=== PATIENT | male | born 1950 | race Caucasian/White ===

== ENCOUNTER 2018-12-24 21:48 | Emergency (ER) | payer MEDICARE ==
[~2018-12-24] VITALS: Ht 177.8 cm; Wt 104.3 kg
--- NOTE | 2018-12-24 21:53 | ED.ADGEN ---
Past History Past Medical History: A-Fib, Arthritis, Arrhythmia, CHF, COPD, Diabetes, Heart Disease, Hypertension, Other Past Surgical History: Cholecystectomy Smoking: Cigarettes Adult General Chief Complaint Chief Complaint ".. I think I got some bad meat.. we bought some at the [employer] store... and after I ate it yesterday... I got up set stomach.. and started having diarrhea .. last night... but today... I ve been vomiting and diarrhea all day... " HPI HPI Patient is a 68 year old male who presents with above hx and complaints N, V, and Diarrhea. Pt. states he can't count the number of diarrhea episodes and had several episodes of vomiting today. Pt. states he normally follows at [facility] if he needs medical care. Pt. hx of diabetes, hypertension, COPD, arthritis, and A. fib.. Patient states he rarely follows up with his doctor at the [facility]. Patient has noncompliance with recommended medications. Pt. denies any travel or specific ill contacts. Pt. does smoke. Review of Systems Review of Systems Constitutional:Subjective fever and chills [] Eyes: Denies change in visual acuity, redness, or eye pain [] HENT: Denies nasal congestion or sore throat [] Respiratory: Denies cough or shortness of breath [] Cardiovascular: No additional information not addressed in HPI [] GI: Generalize abdominal pain, nausea, vomiting,and diarrhea [] : Denies dysuria or hematuria [] Musculoskeletal: Denies back pain or joint pain [] Integument: Denies rash or skin lesions [] Neurologic: Denies headache, focal weakness or sensory changes [] Endocrine: Denies polyuria or polydipsia [] All other systems were reviewed and found to be within normal limits, except as documented in this note. Family History Family History Non-contributory Current Medications Current Medications Current Medications Medications (Trade) Dose Ordered Sig/Chris Start Time Stop Time Status Last Admin Dose Admin Ceftriaxone Sodium 1 gm/ Sodium Chloride 50 ml @ 100 mls/hr 1X ONCE 12/24/18 23:30 12/24/18 23:59 DC 12/24/18 23:31 100 MLS/HR Ceftriaxone Sodium (Rocephin) 1 gm STK-MED ONCE 12/24/18 23:26 12/24/18 23:27 DC Enoxaparin Sodium (Lovenox 100mg Syringe) 100 mg 1X ONCE 12/24/18 23:45 12/24/18 23:46 DC 12/25/18 00:51 100 MG Famotidine (Pepcid Vial) 20 mg 1X ONCE 12/24/18 23:00 12/24/18 23:01 DC 12/24/18 22:42 20 MG Lactated Ringer's 1,000 ml @ 100 mls/hr Q10H 12/24/18 23:00 12/25/18 08:59 12/24/18 22:42 100 MLS/HR Metronidazole 100 ml @ 100 mls/hr 1X ONCE 12/24/18 23:30 12/25/18 00:29 DC 12/24/18 23:31 100 MLS/HR Morphine Sulfate (Morphine 10mg Syringe) 10 mg 1X ONCE 12/24/18 23:00 12/24/18 23:01 DC 12/24/18 22:44 10 MG Ondansetron HCl (Zofran) 8 mg 1X ONCE 12/24/18 23:00 12/24/18 23:01 DC 12/24/18 22:42 8 MG Sodium Chloride 500 ml @ As Directed STK-MED ONCE 12/25/18 00:40 12/25/18 00:41 DC Vancomycin HCl (Vanco Per Pharmacy) 1 each PRN DAILY PRN 12/25/18 00:15 Vancomycin HCl (Vancomycin) 1 gm STK-MED ONCE 12/25/18 00:41 12/25/18 00:42 DC Vancomycin HCl 1 gm/Sodium Chloride 250 ml @ 250 mls/hr 1X ONCE 12/25/18 00:15 12/25/18 01:14 UNV Vancomycin HCl 2 gm/Sodium Chloride 500 ml @ 250 mls/hr 1X ONCE 12/25/18 00:30 12/25/18 02:29 See Nursing for home meds.. Allergies Allergies Allergies Coded Allergies Type Severity Reaction Last Updated Verified No Known Drug Allergies 12/24/18 No Physical Exam Physical Exam Constitutional: in acute distress, non-toxic appearance. [] HENT: Normocephalic, atraumatic, bilateral external ears normal, oropharynx dry, no oral exudates, nose normal. [] Eyes: PERRLA, EOMI, conjunctiva normal, no discharge. [] Neck: Normal range of motion, no tenderness, supple, no stridor. [] Cardiovascular:Tachycardia Heart rate regular rhythm, no murmur, PMI to Lt. ] Lungs & Thorax: Bilateral breath sounds equal apexes with scattered wheezes and crackles on auscultation [] Abdomen: Bowel sounds hyperactive, soft, generalized tenderness, no masses, no pulsatile masses. [Old surgery scar. Active vomiting and diarrhea. ( Min. urine with placement of godwin) Skin: Warm, dry, no erythema, no rash. Poor turgor. Back: No tenderness, no CVA tenderness. [] Extremities: No tenderness, no cyanosis, no clubbing, ROM intact, no edema. Arthritic changes. Neurologic: Alert and oriented X 3, moves all ext. on request and has distal sensory function, no gross focal deficits noted. [] Psychologic: Affect anxious, judgement normal, mood normal. [] Current Patient Data Vital Signs Vital Signs Date Time Temp Pulse Resp B/P (MAP) Pulse Ox O2 Delivery O2 Flow Rate FiO2 12/24/18 22:44 18 91 Lab Results Laboratory Tests Test 12/24/18 22:13 12/24/18 23:15 12/25/18 00:11 White Blood Count 24.4 x10^3/uL (4.0-11.0) H Red Blood Count 6.32 x10^6/uL (4.30-5.70) H Hemoglobin 19.3 g/dL (13.0-17.5) H Hematocrit 56.7 % (39.0-53.0) H Mean Corpuscular Volume 90 fL (79-100) Mean Corpuscular Hemoglobin 31 pg (25-35) Mean Corpuscular Hemoglobin Concent 34 g/dL (31-37) Red Cell Distribution Width 14.3 % (11.5-14.5) Platelet Count 313 x10^3/uL (140-400) Neutrophils (%) (Auto) 91 % (31-73) H Lymphocytes (%) (Auto) 4 % (24-48) L Monocytes (%) (Auto) 4 % (0-9) Eosinophils (%) (Auto) 0 % (0-3) Basophils (%) (Auto) 0 % (0-3) Neutrophils # (Auto) 22.3 x10^3uL (1.8-7.7) H Lymphocytes # (Auto) 1.1 x10^3/uL (1.0-4.8) Monocytes # (Auto) 1.0 x10^3/uL (0.0-1.1) Eosinophils # (Auto) 0.0 x10^3/uL (0.0-0.7) Basophils # (Auto) 0.0 x10^3/uL (0.0-0.2) Segmented Neutrophils % 90 % (35-66) H Lymphocytes % 6 % (24-48) L Monocytes % 4 % (0-10) Toxic Granulation Slight Platelet Estimate Adequate (ADEQUATE) Large Platelets Occ Polychromasia Slight Prothrombin Time 10.0 SEC (9.4-11.4) Prothrombin Time INR 1.0 (0.9-1.1) PTT 25 SEC (23-33) D-Dimer (Elena) 0.97 mg/L (0.00-0.50) H Sodium Level 140 mmol/L (136-145) Potassium Level 3.5 mmol/L (3.5-5.1) Chloride Level 92 mmol/L (98-107) L Carbon Dioxide Level 27 mmol/L (21-32) Anion Gap 21 (6-14) H Blood Urea Nitrogen 50 mg/dL (8-26) H Creatinine 6.4 mg/dL (0.7-1.3) H Estimated GFR (Cockcroft-Gault) 8.8 Glucose Level 215 mg/dL (70-99) H Calcium Level 11.7 mg/dL (8.5-10.1) H Magnesium Level 2.2 mg/dL (1.8-2.4) Total Bilirubin 0.5 mg/dL (0.2-1.0) Direct Bilirubin 0.1 mg/dL (0.0-0.2) Aspartate Amino Transferase (AST) 19 U/L (15-37) Alanine Aminotransferase (ALT) 37 U/L (16-63) Alkaline Phosphatase 168 U/L (46-116) H Creatine Kinase 299 U/L (39-308) Troponin I Quantitative 0.072 ng/mL (0-0.055) H JO-Zkk-J-Type Natriuretic Peptide 1258 pg/mL (0-124) H Total Protein 10.6 g/dL (6.4-8.2) H Albumin 5.2 g/dL (3.4-5.0) H Amylase Level 163 U/L (25-115) H Lipase 58 U/L (73-393) L Lactic Acid Level 8.4 mmol/L (0.4-2.0) *H Blood pH 7.41 (7.35-7.46) Blood Gas PCO2 41 mmHg (35-46) Blood Gas PO2 68 mmHg (80-100) L Blood Gas HCO3 26 mmol/L (21-28) Arterial Bld O2 Saturation (Calc) 94 % (92-99) FiO2 21 % EKG EKG My interpretation of EKG shows a supraventricular rhythm at 117 with right axis deviation and a fascicular block. There is some nonspecific anterior septal changes and T-wave abnormalities.[] Abnormal EKG Radiology/Procedures Radiology/Procedures My interpretation of acute abdomen film shows a chest film consistent with COPD and increased cephalization consistent with CHF. No large infiltrate. Degenerative joint changes. Nonobstructive bowel gas pattern. Clips in right upper abdomen.[] Course & Med Decision Making Course & Med Decision Making Pertinent Labs and Imaging studies reviewed. (See chart for details) Discussed presentation, testing and tx. plan with Dr. Crandall- has agree to accept pt. at [facility]- ICU Critical care-= 90 min. [] Final Impression Final Impression 1. Sepsis/ SIRs ( Lactic 8.4) 2. Acute Renal Failure Bun 50/ Creat 6.4 3. Nausea/ Vomiting/Diarrhea 4. CHF + Trop , 1258 BNP/ Trop. 0.072 5. DM 215 6. Leukocytosis 24.4, with 90 Segs 7, Dehydration 8. Elevated D-dimer 0.97 9. COPD 10.Elevated Amylase Dragon Disclaimer Dragon Disclaimer This electronic medical record was generated, in whole or in part, using a voice recognition dictation system. Discharge Summary Visit Information Final Diagnosis Problems Medical Problems: (1) Nausea and vomiting Status: Acute Brief Hospital Course Allergies Allergies Coded Allergies Type Severity Reaction Last Updated Verified No Known Drug Allergies 12/24/18 No Vital Signs Vital Signs Date Time Temp Pulse Resp B/P (MAP) Pulse Ox O2 Delivery O2 Flow Rate FiO2 12/24/18 22:44 18 91 Lab Results Laboratory Tests Test 12/24/18 22:13 12/24/18 23:15 12/25/18 00:11 White Blood Count 24.4 x10^3/uL (4.0-11.0) Red Blood Count 6.32 x10^6/uL (4.30-5.70) Hemoglobin 19.3 g/dL (13.0-17.5) Hematocrit 56.7 % (39.0-53.0) Mean Corpuscular Volume 90 fL (79-100) Mean Corpuscular Hemoglobin 31 pg (25-35) Mean Corpuscular Hemoglobin Concent 34 g/dL (31-37) Red Cell Distribution Width 14.3 % (11.5-14.5) Platelet Count 313 x10^3/uL (140-400) Neutrophils (%) (Auto) 91 % (31-73) Lymphocytes (%) (Auto) 4 % (24-48) Monocytes (%) (Auto) 4 % (0-9) Eosinophils (%) (Auto) 0 % (0-3) Basophils (%) (Auto) 0 % (0-3) Neutrophils # (Auto) 22.3 x10^3uL (1.8-7.7) Lymphocytes # (Auto) 1.1 x10^3/uL (1.0-4.8) Monocytes # (Auto) 1.0 x10^3/uL (0.0-1.1) Eosinophils # (Auto) 0.0 x10^3/uL (0.0-0.7) Basophils # (Auto) 0.0 x10^3/uL (0.0-0.2) Segmented Neutrophils % 90 % (35-66) Lymphocytes % 6 % (24-48) Monocytes % 4 % (0-10) Toxic Granulation Slight Platelet Estimate Adequate (ADEQUATE) Large Platelets Occ Polychromasia Slight Prothrombin Time 10.0 SEC (9.4-11.4) Prothromb Time International Ratio 1.0 (0.9-1.1) Activated Partial Thromboplast Time 25 SEC (23-33) D-Dimer (Elena) 0.97 mg/L (0.00-0.50) Sodium Level 140 mmol/L (136-145) Potassium Level 3.5 mmol/L (3.5-5.1) Chloride Level 92 mmol/L (98-107) Carbon Dioxide Level 27 mmol/L (21-32) Anion Gap 21 (6-14) Blood Urea Nitrogen 50 mg/dL (8-26) Creatinine 6.4 mg/dL (0.7-1.3) Estimated GFR (Cockcroft-Gault) 8.8 Glucose Level 215 mg/dL (70-99) Calcium Level 11.7 mg/dL (8.5-10.1) Magnesium Level 2.2 mg/dL (1.8-2.4) Total Bilirubin 0.5 mg/dL (0.2-1.0) Direct Bilirubin 0.1 mg/dL (0.0-0.2) Aspartate Amino Transf (AST/SGOT) 19 U/L (15-37) Alanine Aminotransferase (ALT/SGPT) 37 U/L (16-63) Alkaline Phosphatase 168 U/L (46-116) Creatine Kinase 299 U/L (39-308) Troponin I Quantitative 0.072 ng/mL (0-0.055) UM-Uui-R-Type Natriuretic Peptide 1258 pg/mL (0-124) Total Protein 10.6 g/dL (6.4-8.2) Albumin 5.2 g/dL (3.4-5.0) Amylase Level 163 U/L (25-115) Lipase 58 U/L (73-393) Ethyl Alcohol Level < 10 mg/dL (0-10) Lactic Acid Level 8.4 mmol/L (0.4-2.0) Blood Gas pH 7.41 (7.35-7.46) Blood Gas PCO2 41 mmHg (35-46) Blood Gas PO2 68 mmHg (80-100) Blood Gas HCO3 26 mmol/L (21-28) Arterial Bld O2 Saturation (Calc) 94 % (92-99) FiO2 21 % Brief Hospital Course Mr. James is a 68 [facility] [place] [facility] who presented with sepsis -Lactic 8.4, , acute renal failure, n/v/d, dehydration, chf + trop. , Leukocytosis 24.4 with 90 Segs, CHF, COPD. Transfer to [facility]- Dr. Crandall Discharge Information Condition at Discharge: Improved Disposition/Orders: D/C to Another Facility Dischare Medications Current Medications Lactated Ringer's 1,000 ml @ 100 mls/hr Q10H IV Last administered on 12/24/18at 22:42; Admin Dose 100 MLS/HR; Start 12/24/18 at 23:00; Stop 12/25/18 at 08:59 Ondansetron HCl (Zofran) 8 mg 1X ONCE IV Last administered on 12/24/18at 22:42; Admin Dose 8 MG; Start 12/24/18 at 23:00; Stop 12/24/18 at 23:01; Status DC Famotidine (Pepcid Vial) 20 mg 1X ONCE IVP Last administered on 12/24/18at 22 :42; Admin Dose 20 MG; Start 12/24/18 at 23:00; Stop 12/24/18 at 23:01; Status DC Morphine Sulfate (Morphine 10mg Syringe) 10 mg 1X ONCE SQ Last administered on 12/24/18at 22:44; Admin Dose 10 MG; Start 12/24/18 at 23:00; Stop 12/24/18 at 23:01; Status DC Ceftriaxone Sodium 1 gm/ Sodium Chloride 50 ml @ 100 mls/hr 1X ONCE IV Last administered on 12/24/18at 23:31; Admin Dose 100 MLS/HR; Start 12/24/18 at 23:30; Stop 12/24/18 at 23:59; Status DC Metronidazole 100 ml @ 100 mls/hr 1X ONCE IV Last administered on 12/24/18at 23:31; Admin Dose 100 MLS/HR; Start 12/24/18 at 23:30; Stop 12/25/18 at 00:29; Status DC Sodium Chloride 50 ml @ As Directed STK-MED ONCE .ROUTE ; Start 12/24/18 at 23:26; Stop 12/24/18 at 23:27; Status DC Ceftriaxone Sodium (Rocephin) 1 gm STK-MED ONCE .ROUTE ; Start 12/24/18 at 23:26; Stop 12/24/18 at 23:27; Status DC Enoxaparin Sodium (Lovenox 100mg Syringe) 100 mg 1X ONCE SQ Last administered on 12/25/18at 00:51; Admin Dose 100 MG; Start 12/24/18 at 23:45; Stop 12/24/18 at 23:46; Status DC Vancomycin HCl 1 gm/Sodium Chloride 250 ml @ 250 mls/hr 1X ONCE IV ; Start 12/25/18 at 00:15; Stop 12/25/18 at 01:14; Status UNV Vancomycin HCl (Vanco Per Pharmacy) 1 each PRN DAILY PRN MC SEE COMMENTS; Start 12/25/18 at 00:15 Vancomycin HCl 2 gm/Sodium Chloride 500 ml @ 250 mls/hr 1X ONCE IV ; Start 12/25/18 at 00:30; Stop 12/25/18 at 02:29 Sodium Chloride 500 ml @ As Directed STK-MED ONCE .ROUTE ; Start 12/25/18 at 00:38; Stop 12/25/18 at 00:39; Status DC Vancomycin HCl (Vancomycin) 1 gm STK-MED ONCE .ROUTE ; Start 12/25/18 at 00:39; Stop 12/25/18 at 00:40; Status DC Sodium Chloride 500 ml @ As Directed STK-MED ONCE .ROUTE ; Start 12/25/18 at 00:40; Stop 12/25/18 at 00:41; Status DC Vancomycin HCl (Vancomycin) 1 gm STK-MED ONCE .ROUTE ; Start 12/25/18 at 00:41; Stop 12/25/18 at 00:42; Status DC Dragon Disclaimer This chart was dictated in whole or in part using Voice Recognition software in a busy, high-work load, and often noisy Emergency Department environment. It may contain unintended and wholly unrecognized errors or omissions. JAYDA FERNANDES MD Dec 24, 2018 21:53
[2018-12-24 22:41] LABS: BASO % 0 % (0-3); EOS % 0 % (0-3); HEMATOCRIT 56.7 % (39.0-53.0); HEMOGLOBIN 19.3 g/dL (13.0-17.5); LYMPH # 1.1 x10^3/uL (1.0-4.8); LYMPH % 4 % (24-48); MEAN CORPUSCULAR HEMOGLOBIN 31 pg (25-35); MEAN CORPUSCULAR HGB CONC 34 g/dL (31-37); MEAN CORPUSCULAR VOLUME 90 fL (79-100); MONO % 4 % (0-9); NEUT # 22.3 x10^3uL (1.8-7.7); NEUT % 91 % (31-73); PLATELET COUNT 313 x10^3/uL (140-400); RED BLOOD COUNT 6.32 x10^6/uL (4.30-5.70); RED CELL DISTRIBUTION WIDTH 14.3 % (11.5-14.5); WHITE BLOOD COUNT 24.4 x10^3/uL (4.0-11.0)
[2018-12-24] MEDS: IV RINGERS SOLUTION,LACTATED 1,000 ML IV SCH (22:42)
[2018-12-24] MEDS: FAMOTIDINE 20 MG/2 ML VIAL IVP ONE (22:42)
[2018-12-24] MEDS: ONDANSETRON PF 4 MG/2 ML VIAL. IV ONE (22:42)
[2018-12-24] MEDS: MORPHINE SULFATE 10 MG/ML SYRINGE. SQ ONE (22:44)
[2018-12-24 23:07] LABS: ALBUMIN 5.2 g/dL (3.4-5.0); CALCIUM 11.7 mg/dL (8.5-10.1); CREATININE 6.4 mg/dL (0.7-1.3); GFR 8.8; TOTAL BILIRUBIN 0.5 mg/dL (0.2-1.0); TOTAL PROTEIN 10.6 g/dL (6.4-8.2)
[2018-12-24 23:08] LABS: DIRECT BILIRUBIN 0.1 mg/dL (0.0-0.2); MAGNESIUM 2.2 mg/dL (1.8-2.4); POTASSIUM 3.5 mmol/L (3.5-5.1)
[2018-12-24 23:21] LABS: % LYMPHS 6 % (24-48); % MONOS 4 % (0-10); % SEGS 90 % (35-66); PLT ESTIMATE ADEQUATE (ADEQUATE); POLYCHROMASIA SLIGHT
[2018-12-24 23:22] LABS: TOXIC GRANULATION SLIGHT
[2018-12-24] MEDS ORDERED: IV NORMAL SALINE 50ML 50 ML ONE (23:26)
[2018-12-24] MEDS ORDERED: cefTRIAXone SODIUM 1 GM VIAL ONE (23:26)
[2018-12-25] MEDS ORDERED: VANCOMYCIN 1 GM in IV NORMAL SALINE 250ML 250 ML IV ONE (00:15)
[2018-12-25] MEDS ORDERED: VANCOMYCIN PER PHARMACY MC PRN (00:15)
[2018-12-25 00:20] LABS: BGAS PH 7.41 (7.35-7.46)
[2018-12-25] MEDS ORDERED: VANCOMYCIN 2 GM in IV NORMAL SALINE 500ML 500 ML IV ONE (00:30)
[2018-12-25] MEDS ORDERED: IV NORMAL SALINE 500ML 500 ML ONE ×2 (00:38→00:40)
[2018-12-25] MEDS ORDERED: VANCOMYCIN 1 GM VIAL. ONE ×2 (00:39→00:41)
[2018-12-25 00:47] VITALS: BP 136/80
[2018-12-25] MEDS: ENOXAPARIN ** NOTE DOSE ** SYRINGE SQ ONE (00:51)
--- NOTE | 2018-12-25 06:32 | EKG ---
[address] [address] Test Date: 2018-12-24 Test Time: 22:15:28 Pat Name: ERYN OZUNA Department: Room: Gender: M Crm Administrator: GERA : [id number] Requested By: JAYDA FERNANDES Order Number: [id number] Reading MD: Measurements Intervals [place] Rate: 117 P: -95 MN: 144 QRS: -106 QRSD: 122 T: 103 QT: 336 QTc: 473 Interpretive Statements SUPRAVENTRICULAR RHYTHM LEFT ATRIAL ABNORMALITY ABNORMAL RIGHT SUPERIOR AXIS DEVIATION LEFT ANTERIOR FASCICULAR BLOCK LEFT VENTRICULAR HYPERTROPHY QRS(T) CONTOUR ABNORMALITY CONSIDER ANTEROSEPTAL MYOCARDIAL DAMAGE T ABNORMALITY IN HIGH LATERAL LEADS ABNORMAL ECG RI6.01 No previous ECG available for comparison
--- NOTE | 2018-12-25 08:54 | RAD ---
EXAM: Frontal view of the chest, AP views of the abdomen in upright and supine positions. CLINICAL INDICATION: Nausea, vomiting COMPARISON: None. FINDINGS and IMPRESSION: The heart is not enlarged. Mediastinal and hilar contours are normal. Emphysematous changes are seen. No pleural effusion or pneumothorax. No abnormal small or large bowel dilatation. Moderate colonic stool content. Cholecystectomy clips are seen. No abnormal soft tissue mass effect. No suspicious calcifications are seen. No free intraperitoneal gas. Electronically signed by: Refugio Hill MD (12/25/2018 8:51 AM) [facility], [place]
== END 2018-12-25 00:57 | disposition other institution (70) ==
LOC: ER 21:48
DX: N17.9 Acute kidney failure, unspecified (principal); E86.0 Dehydration; I11.0 Hypertensive heart disease with heart failure; I50.9 Heart failure, unspecified; E11.9 Type 2 diabetes mellitus without complications; D72.829 Elevated white blood cell count, unspecified; R79.1 Abnormal coagulation profile; J44.9 Chronic obstructive pulmonary disease, unspecified; R74.8 Abnormal levels of other serum enzymes; I48.91 Unspecified atrial fibrillation; M19.90 Unspecified osteoarthritis, unspecified site; F17.210 Nicotine dependence, cigarettes, uncomplicated
CPT/HCPCS: 36415; 36600; 51702; 74022; 80048; 80076; 82150; 82550; 82803; 83605; 83690; 83735; 83880; 84443; 84484; 85007; 85025; 85379; 85610; 85730; 86705; 86709; 86803; 87040; 87045; 87340; 87493; 93005; 96365; 96368; 96372; 96375; 99291; 99292; G0480; J0696; J1650; J2270; J2405; J3490; J7120; 96361

== ENCOUNTER → 2019-01-18 | Outpatient (CLI) | payer MEDICARE ==
[2018-12-25 00:47] VITALS: BP 136/80
[2019-01-18] MEDS: REGADENOSON 0.4 MG/5 ML DISP.SYRIN. IV ONE (09:00)
--- NOTE | 2019-01-19 12:54 | RAD ---
MR#: [id number] Date of Study: 01/18/2019 Ordering Physician: DALJIT HAYS, Referring Physician: HILLARY STOCK Tech: JIN hO APPROVED REPORT Test Type: Pharmacological Stress Nurse/Tech: JIN Oh Test Indications: Elevated Troponin Cardiac History: Tachycardia Medications: see EHR Medical History: see EHR Resting ECG: SR Resting Heart Rate: 62 bpm Resting Blood Pressure: 106/54mmHg Pretest Chest Pain: None Nurse/Tech Notes Consent: The procedure was explained to the patient in lay terms. Informed consent was witnessed. Kevin eout was entered into [employer]. History and Stress Test performed by JIN Oh Pharm. Details Pharmacologic stress testing was performed using 0.4mg per 5ml of regadenoson given intravenously ove r 7-10 seconds. POST EXERCISE Max HR: 108 bpm Max Blood Pressure: 98/51mmHg Blood Pressure response to exercise: Normal blood pressure response during stress. Chest Pain: No. INTERPRETATION Stress EKG Conclusion: Baseline EKG showed sinus rhythm. Non-diagnostic changes at peak stress. No arrhythmias. Imaging Protocol IMAGE PROTOCOL: Rest Tc-99m/stress Tc-99m 1 day Rest: Stress: Viability: Radiopharm.Tc99m [id number] Sestamibi [id number] 33mCi Duration 15min. 10min. Img Date 01/18/2019 01/18/2019 Inj-Img [id number]. 75min. Rest Admin Site:IV - Right WristAdministrator:JIN Oh Stress Admin Site: IV - Right WristAdministrator: JIN Oh STRESS DATA End Diast. Vol.128.0mlAv. Heart Rate67.0bpm End Syst. Vol.38.0mlCO Index BSA0.0L/min Myocardial Slkr809.0gEject. Dwlmhygm30.0% Stress Rates Pk. Fill Rate2.52EDV/secLVtime Pk. Fill 107.25msec Pk. Empty Rate4.28ESV/secLVtime Pk. Fnpee384.96msec 1/3 Pk. Fill1.78EDV/sec Stress Scores Regional WT0.00Summed WT7.00 Regional WM0.00Summed WM0.00 LV Perfusion Scintigraphic images showed mixed perfusion defect involving the inferoapical wall consistent with sm all infarct and small amount of ischemia. Wall Motion Normal left ventricle systolic function with ejection fraction calculated at 70%. LV Perf. Quant 17 Seg. SSS15.00 17 Seg. SRS10.00 17 Seg. SDS5.00 Stress Defect Extent (% LAD)26.90Rest Defect Extent (% LAD)25.60Rev. Defect Extent (% LAD)0.00 Stress Defect Extent (% LCX) 20.00Rest Defect Extent (% LCX)18.80Rev. Defect Extent (% LCX)0.00 Stress Defect Extent (% RCA)35.60Rest Defect Extent (% RCA)24.40Rev. Defect Extent (% RCA)1.10 Stress Defect Extent (% LAURA)34.60Rest Defect Extent (% LAURA)29.60Rev. Defect Extent (% LAURA)0.20 Conclusion 1. Regadenoson cardioisotope stress test showed mixed perfusion defect involving the inferoapical wal l consistent with small infarct and small amount of ischemia. 2. Normal left ventricular systolic function with ejection fraction calculated at 70%. 3. Low to intermediate risk for cardiac events. Signed by : Jos Cardona, Electronically Approved : 01/19/2019 12:54:13
== END | disposition home or self-care (01) ==
LOC: NM 07:41
PROVIDERS: ATTEND Internal Medicine Cardiovascular Disease
DX: R79.89 Other specified abnormal findings of blood chemistry (principal)
CPT/HCPCS: 78452; 93017; A9500; J2785

== ENCOUNTER → 2020-04-29 | Outpatient (CLI) | payer MEDICARE ==
[~2020-04-29] MED LIST: REGADENOSON 0.4 MG/5 ML DISP.SYRIN. IV ONE
--- NOTE | 2020-04-29 19:09 | RAD ---
MR#: [id number] Date of Study: 04/29/2020 Ordering Physician: DALJIT HAYS, Referring Physician: HILLARY STOCK Tech: JARRETT Griggs ARRT (R) (N) APPROVED REPORT Test Type: Pharmacological Stress Nurse/Tech: MARIA Ayers Test Indications: nstemi Cardiac History: Hypertension, High cholesterol Medical History: See Electronic Medical Record Resting ECG: sr Resting Heart Rate: 94 bpm Resting Blood Pressure: 136/78mmHg Pretest Chest Pain: No chest pain Nurse/Tech Notes SR, LBBB Consent: The procedure was explained to the patient in lay terms. Informed consent was witnessed. Kevin eout was entered into [employer]. History and Stress Test performed by JARRETT Griggs ARRT (R) (N) Pharm. Details Pharmacologic stress testing was performed using 0.4mg per 5ml of regadenoson given intravenously ove r 7-10 seconds. Stress Symptoms Dyspnea POST EXERCISE Reason for Termination: Infusion complete Target HR: No Max HR: 112 bpm 86% of Maximum Predicted HR: 129 bpm Exercise duration: 6 min:sec, Stage Max Blood Pressure: 153/78mmHg Blood Pressure response to exercise: Normal blood pressure response during stress. Chest Pain: No. Arrhythmia: No. INTERPRETATION Stress EKG Conclusion: The resting EKG shows a sinus rhythm with a nonspecific intraventricular delay with nonspecific ST segment changes. The stress EKG shows no significant changes from baseline. No EKG evidence of stress-induced ischemia. Imaging Protocol IMAGE PROTOCOL: Rest Tc-99m/stress Tc-99m 1 day Rest: Stress: Viability: Radiopharm.Tc99m [id number] Sestamibi [id number] 32mCi Img Date 04/29/2020 04/29/2020 Inj-Img [id number]. 45min. Rest Admin Site:IV - Right AntecubitalAdministrator: JARRETT Griggs ARRT (R)(N) Stress Admin Site: IV - Right AntecubitalAdministrator: Sandrine Hemphill, NMTCB, ARRT (R)(N) STRESS DATA End Diast. Vol.115.0mlAv. Heart Rtpb654.0bpm End Syst. Vol.31.0mlCO Index BSA0.0L/min Myocardial Xase058.0gEject. Bbzdeqvl85.0% Stress Rates Pk. Fill Rate2.82EDV/secLVtime Pk. Fill 137.83msec Pk. Empty Rate4.42ESV/secLVtime Pk. Ywnoi471.35msec 06/08 Pk. Fill1.53EDV/sec Stress Scores Regional WT0.00Summed WT13.00 Regional WM0.00Summed WM2.00 LV Perfusion The stress images show no significant defects. The rest images show no significant defects. Nuclear imaging shows no reversible ischemia or infarct. Wall Motion Left ventricular systolic function is normal with no regional wall motion abnormalities and an ejecti on fraction of 67%. LV Perf. Quant 17 Seg. SSS3.00 17 Seg. SRS5.00 17 Seg. SDS0.00 Stress Defect Extent (% LAD)0.00Rest Defect Extent (% LAD)0.60Rev. Defect Extent (% LAD)0.00 Stress Defect Extent (% LCX) 0.00Rest Defect Extent (% LCX)0.00Rev. Defect Extent (% LCX)0.00 Stress Defect Extent (% RCA)8.90Rest Defect Extent (% RCA)22.20Rev. Defect Extent (% RCA)0.00 Stress Defect Extent (% LAURA)5.70Rest Defect Extent (% LAURA)7.40Rev. Defect Extent (% LAURA)0.00 Conclusion 1. No EKG evidence of stress-induced ischemia. 2. Nuclear imaging shows no reversible ischemia or infarct. 3. Normal left ventricular systolic function with no regional wall motion abnormalities and an ejecti on fraction of 67%. 4. Moderately low to low risk Lexiscan nuclear stress test. Signed by : Ham Fletcher MD Electronically Approved : 04/29/2020 19:08:48
== END ==
LOC: NM 07:24
PROVIDERS: ATTEND Internal Medicine Cardiovascular Disease
DX: I10 Essential (primary) hypertension (principal); I25.2 Old myocardial infarction
CPT/HCPCS: 78452; 93017; A9500; J2785